=== PATIENT | male | born 1945 | race Caucasian/White ===

== ENCOUNTER 2017-01-08 09:43 | Day surgery (SDC) | payer MEDICARE ==
[2017-01-08] MEDS ORDERED: Lidocaine Topical 2% 30 mL Jelly ONE (10:22)
== END 2017-01-08 23:59 | disposition home or self-care (01) ==
LOC: END 09:43
PROVIDERS: ATTEND Internal Medicine Gastroenterology
DX: F45.8 Other somatoform disorders (principal); K22.70 Barrett's esophagus without dysplasia; K21.9 Gastro-esophageal reflux disease without esophagitis